=== PATIENT | female | born 1990 | race Caucasian/White ===

== ENCOUNTER 2022-03-11 22:05 | Inpatient (IN) | payer OTHER ==
[2022-03-11] MEDS ORDERED: DINOPROSTONE 10 MG VAGINAL SUPPOSITORY VG ONE (23:25)
[2022-03-11 23:30] LABS: BASO % 0.3 % (0-2.0); EOS % 1.2 % (0-4.5); HEMATOCRIT 29.5 % (32.4-45.2); HEMOGLOBIN 9.9 GM/dL (10.7-15.3); MCH 26.5 pg (25.7-33.7); MCHC 33.4 g/dl (32.0-36.0); MEAN CELL VOLUME 79.3 fl (80-96); MEAN PLT VOLUME 9.5 fl (7.5-11.1); MONO % 5.6 % (3.8-10.2); NEUT % 80.9 % (42.8-82.8); PLATELET COUNT 116 10^3/uL (134-434); RBC 3.72 M/mm3 (3.60-5.2); RDW 15.4 % (11.6-15.6); WHITE BLOOD COUNT 6.7 K/mm3 (4.0-10.0)
[2022-03-11 23:33] LABS: RETICULOCYTES 2.08 % (0.5-1.5)
[2022-03-11 23:43] LABS: CALCIUM 8.5 mg/dL (8.5-10.1)
[2022-03-11] MEDS ORDERED: ELECTROLYTE-148 SOLN 1,000 ML IV SCH (23:45)
[2022-03-11 23:47] LABS: CREATININE 0.4 mg/dL (0.55-1.3); URIC ACID 4.6 mg/dL (2.6-7.2)
[2022-03-11] MEDS ORDERED: BUTORPHANOL TARTRATE 1 MG/ML VIAL IVPB PRN (23:56)
[2022-03-11] MEDS ORDERED: PROMETHAZINE HCL 25 MG/1 ML VIAL IVPUSH ONE (23:56)
[2022-03-11 23:59] LABS: ACTIVATED PTT 27.3 SECONDS (25.2-36.5); INR 0.92 (0.83-1.09); PROTHROMBIN TIME (PATIENT) 10.6 SEC (9.7-13.0)
[2022-03-12 00:27] VITALS: BMI 34.0
[2022-03-12] MEDS: ELECTROLYTE-148 SOLN 1,000 ML IV SCH (03:00)
[2022-03-12] MEDS: OXYTOCIN 30 UNITS in 0.9% NS 30 UNIT/500 ML INFUS.BAG IVPB SCH (12:45)
[2022-03-12] MEDS ORDERED: AMPICILLIN SODIUM 2 GM VIAL IVPB ONE (13:00)
[2022-03-12] MEDS ORDERED: OXYTOCIN 30 UNITS in 0.9% NS 30 UNIT/500 ML INFUS.BAG IVPB ONE (13:37)
[2022-03-12] MEDS ORDERED: AMPICILLIN SODIUM 2 GM VIAL ONE (13:37)
[2022-03-12] MEDS ORDERED: AMPICILLIN SODIUM 1 GM VIAL ONE ×2 (17:00→21:16)
[2022-03-12] MEDS: AMPICILLIN - 1 GM in SODIUM CHLORIDE 100 ML IVPB SCH ×2 (17:05→21:00)
[2022-03-12] MEDS ORDERED: FENTANYL/BUPIVACAINE/NS/PF - PCEA - 50 ML DISP.SYRIN EP ONE (20:41)
[2022-03-12] MEDS ORDERED: NALOXONE HCL 0.4 MG/ML VIAL IVPUSH PRN (22:58)
[2022-03-12] MEDS ORDERED: FENTANYL/BUPIVACAINE/NS/PF - PCEA - 50 ML DISP.SYRIN EP SCH (23:00)
[2022-03-13] MEDS ORDERED: AMPICILLIN SODIUM 1 GM VIAL ONE ×3 (00:51→09:10)
[2022-03-13] MEDS: AMPICILLIN - 1 GM in SODIUM CHLORIDE 100 ML IVPB SCH ×4 (01:00→13:14)
[2022-03-13] MEDS: ELECTROLYTE-148 SOLN 1,000 ML IV SCH (02:15)
[2022-03-13] MEDS ORDERED: FENTANYL/BUPIVACAINE/NS/PF - PCEA - 50 ML DISP.SYRIN EP ONE ×2 (02:20→05:29)
[2022-03-13] MEDS ORDERED: LIDOCAINE HCL 1% PRESERVATIVE FREE - 30ML VIAL ONE (08:10)
[2022-03-13] MEDS ORDERED: OXYTOCIN 20 UNITS in 0.9% NS 20 UNIT/1,000 ML INFUS.BAG IV ONE ×2 (08:17→12:40)
[2022-03-13] MEDS ORDERED: BENZOCAINE 20% 57 GM BOTTLE TP PRN (09:02)
[2022-03-13] MEDS ORDERED: BENZOCAINE 28 GM HEMORRHOIDAL OINTMENT TP PRN (09:02)
[2022-03-13] MEDS ORDERED: ACETAMINOPHEN 325 MG TABLET (FP) PO PRN (09:02)
[2022-03-13] MEDS ORDERED: METHYLERGONOVINE MALEATE 0.2 MG/1 ML AMP IM PRN (09:02)
[2022-03-13] MEDS ORDERED: WITCH HAZEL 50% (TUCKS) 40 PAD/JAR PAD TP PRN (09:02)
[2022-03-13] MEDS ORDERED: OXYTOCIN 20 UNITS in 0.9% NS 20 UNIT/1,000 ML INFUS.BAG IV SCH (09:15)
[2022-03-13] MEDS ORDERED: LIDOCAINE HCL/PF 2% SDV 5ML VIAL ONE (10:05)
[2022-03-13] MEDS ORDERED: PROPOFOL 20 ML ONE (10:14)
[2022-03-13] MEDS ORDERED: morphine SULFATE/PF 1 MG/2 ML (2cc Syringe - QUVA) ONE ×2 (10:14)
[2022-03-13] MEDS ORDERED: SUCCINYLCHOLINE CHLORIDE 200 MG/10 ML SYRINGE ONE (10:14)
[2022-03-13] MEDS ORDERED: MIDAZOLAM HCL 2 MG/2 ML SINGLE DOSE VIAL ONE (10:56)
[2022-03-13] MEDS ORDERED: ONDANSETRON 4 MG/2 ML VIAL ONE (11:03)
[2022-03-13] MEDS ORDERED: OXYTOCIN 10 UNITS/ML VIAL ONE (11:03)
[2022-03-13 11:59] LABS: CORD HCO3 22.7 mmHg (20-29); CORD PCO2 56.6 mmHg (30-78); CORD pH 7.222 (7.14-7.44)
[2022-03-13 12:02] LABS: CORD BASE EXCESS -5.2 mmol/L (0-2); CORD HCO3 21.7 mmHg (20-29); CORD PCO2 46.8 mmHg (30-78); CORD pH 7.284 (7.14-7.44)
[2022-03-13] MEDS: FERROUS SO4 325 MG TABLET (FP) PO SCH ×2 (12:42→22:39)
[2022-03-13] MEDS: PRENATAL VITAMINS W/ FOLIC ACID TABLET (FP) PO SCH (12:42)
[2022-03-13] MEDS ORDERED: IBUPROFEN 800 MG/8 ML IJ IVPB ONE (12:56)
[2022-03-13] MEDS: IBUPROFEN 800 MG/8 ML IJ IVPB PRN ×2 (13:00→20:53)
[2022-03-13] MEDS: OXYTOCIN 30 UNITS in 0.9% NS 30 UNIT/500 ML INFUS.BAG IVPB SCH (14:41)
[2022-03-14] MEDS: IBUPROFEN 800 MG/8 ML IJ IVPB PRN (05:46)
[2022-03-14 07:27] LABS: BASO % 0.2 % (0-2.0); EOS % 0.7 % (0-4.5); HEMOGLOBIN 8.3 GM/dL (10.7-15.3); LYMPH % 6.7 % (8-40); MCH 25.9 pg (25.7-33.7); MEAN CELL VOLUME 80.9 fl (80-96); MEAN PLT VOLUME 9.9 fl (7.5-11.1); MONO % 6.1 % (3.8-10.2); NEUT % 86.3 % (42.8-82.8); PLATELET COUNT 106 10^3/uL (134-434); RBC 3.22 M/mm3 (3.60-5.2); RDW 15.9 % (11.6-15.6); WHITE BLOOD COUNT 8.1 K/mm3 (4.0-10.0)
[2022-03-14] MEDS ORDERED: BISACODYL 10 MG SUPP.RECT RC PRN (10:00)
[2022-03-14] MEDS: FERROUS SO4 325 MG TABLET (FP) PO SCH ×2 (13:53→22:20)
[2022-03-14] MEDS: PRENATAL VITAMINS W/ FOLIC ACID TABLET (FP) PO SCH (13:53)
[2022-03-14] MEDS: IBUPROFEN 600 MG TABLET (FP) PO PRN ×2 (13:53→18:11)
[2022-03-14] MEDS: SIMETHICONE 80 MG TAB.CHEW (FP) PO PRN ×3 (13:53→22:20)
[2022-03-14] MEDS: oxyCODONE HCL 5 MG TABLET PO PRN (20:34)
[2022-03-14] MEDS ORDERED: oxyCODONE HCL 5 MG TABLET PO PRN (22:00)
[2022-03-15] MEDS: IBUPROFEN 600 MG TABLET (FP) PO PRN (06:15)
[2022-03-15] MEDS: SIMETHICONE 80 MG TAB.CHEW (FP) PO PRN ×2 (06:15→11:56)
[2022-03-15] MEDS ORDERED: ACETAMINOPHEN 325 MG TABLET (FP) PO ONE (08:30)
[2022-03-15] MEDS ORDERED: oxyCODONE HCL 5 MG TABLET PO ONE (08:30)
[2022-03-15] MEDS: PRENATAL VITAMINS W/ FOLIC ACID TABLET (FP) PO SCH (09:51)
[2022-03-15] MEDS: FERROUS SO4 325 MG TABLET (FP) PO SCH (09:51)
[2022-03-15] MEDS ORDERED: PATIENT'S OWN MEDICATION (NON-FORMULARY) (Ferrous Sulfate [Iron] 325 MG Tablet) PO SCH (10:00)
[2022-03-15] MEDS ORDERED: PRENATAL VITAMINS W/ FOLIC ACID TABLET (FP) PO SCH (10:00)
[2022-03-15 10:55] VITALS: BP 134/83; PULSE 85; TEMP 98.2
[2022-03-15] MEDS: oxyCODONE HCL 5 MG TABLET PO PRN (11:56)
== END 2022-03-15 13:40 | disposition home or self-care (01) | DRG 540 ==
LOC: EDBD 22:05 → JLDR 22:05 → J3W 03-13 14:20
PROVIDERS: ADMIT Obstetrics & Gynecology; ATTEND Obstetrics & Gynecology
PROC: 3E0P7VZ Introduction of Hormone into Female Reproductive, Via Natural or Artificial Opening (ICD-10-PCS; 2022-03-11)
PROC: 10D00Z1 Extraction of Products of Conception, Low, Open Approach (ICD-10-PCS; principal; 2022-03-12)
PROC: 3E033VJ Introduction of Other Hormone into Peripheral Vein, Percutaneous Approach (ICD-10-PCS; 2022-03-12)
DX: O48.0 Post-term pregnancy (principal); O76 Abnormality in fetal heart rate and rhythm complicating labor and delivery; O36.63X0 Maternal care for excessive fetal growth, third trimester, not applicable or unspecified; Z3A.40 40 weeks gestation of pregnancy; Z37.0 Single live birth
CPT/HCPCS: 36415; 36600; 80048; 82803; 82977; 83010; 84450; 84460; 84550; 85025; 85032; 85045; 85610; 85730; 86780; 86850; 86900; 86901; 88307-TC; C9803-CS; U0003; U0005